=== PATIENT | female | born 1985 | race Caucasian/White ===

== ENCOUNTER 2016-12-15 08:04 | Emergency (ER) | payer OTHER ==
[~2016-12-15] VITALS: Wt 71.0 kg
[~2016-12-15 08:04] MED LIST: CLIN-72 PO; IBUP-1542 PO; IBUP800T25 PO; PREN-39 PO
--- NOTE | 2016-12-15 09:26 | RADRPT ---
PROCEDURE: US Pelvis. CLINICAL INDICATION: pelvic pain TECHNIQUE: Multiple sonographic images of the pelvis were obtained utilizing a transabdominal and endovaginal technique. The images were reviewed on a PACS workstation. COMPARISON: None. FINDINGS: The uterus is normal in size with a normal appearance of the myometrium. The uterus measures 8.5 x 4.1 x 5.2 cm. The endometrial stripe is homogeneous in appearance and has the thickness of 4.2 mm. The ovaries are normal in size and echogenicity. Normal Doppler flow is identified in both ovaries. There are normal follicles in the ovaries. The right ovary measures 3.4 x 2.5 x 2.2 cm. The left ovary measures 3.2 x 1.5 x 2.1 cm. No free fluid is present within the pelvis. RPTAT: AA IMPRESSION: Unremarkable pelvic ultrasound. .Cuong Pena MD, Date Time Electronically viewed and signed by .Cuong Pena MD, MD on 12/15/2016 09:26 .S/
--- NOTE | 2016-12-15 09:29 | ERD ---
ER Documentation Chief Complaint Date/Time DATE: 12/15/16 TIME: 09:29 Chief Complaint PELVIC PAIN X 3 DAYS DENIES PREG HPI This is a 31-year-old female presenting to the emergency department complaining of suprapubic pain for the past 3 days. Patient describes it as a pressure. She denies any dysuria, hematuria, vaginal discharge. She states that she has 1 sexual partner with her . She denies any fevers. ROS All systems reviewed and are negative except as per history of present illness. Medications Home Meds Active Scripts Phenazopyridine Hcl* (Pyridium*) 200 Mg Tab, 200 MG PO TID Y for URINARY PAIN, # 10 TAB Prov:STORM BACH PA-C 12/15/16 Nitrofurantoin Monohyd Macrocr* (Macrobid*) 100 Mg Capsr, 100 MG PO BID for 7 Days, CAP Prov:STORM BACH PA-C 12/15/16 Clindamycin Hcl* (Clindamycin Hcl*) 150 Mg Capsule, 150 MG PO QID, #30 CAP Prov:IZABEL HAGEN DO 11/27/15 Ibuprofen* (Motrin*) 600 Mg Tab, 600 MG PO Q8, #30 TAB Prov:IZABEL HAGEN DO 11/27/15 Ibuprofen* (Motrin*) 800 Mg Tab, 800 MG PO Q6H Y for PAIN AND OR ELEVATED TEMP, #30 TAB Prov:LORRIE MORENO MD 01/30/15 Reported Medications Vits W-Ca,Fe,Fa(<1MG) ( Vitamins) 1 Tab Tablet, 1 TAB PO DAILY 11/28/12 Allergies Allergies: Coded Allergies: No Known Allergy (Unverified , 12/15/16) PMhx/Soc Medical and Surgical Hx: pt denies Medical Hx History of Surgery: Yes (c/section x4) Anesthesia Reaction: No Hx Neurological Disorder: No Hx Respiratory Disorders: No Hx Cardiac Disorders: No Hx Psychiatric Problems: No Hx Miscellaneous Medical Probl: No Hx Alcohol Use: No Hx Substance Use: No Hx Tobacco Use: No Physical Exam Vitals Vital Signs Date Time Temp Pulse Resp B/P Pulse Ox O2 Delivery O2 Flow Rate FiO2 12/15/16 08:23 98.0 81 18 132/71 99 Physical Exam General: well-developed/well-nourished, in no apparent distress, non-toxic appearing HENT: NC/AT Eyes: Conjunctiva normal Neck: Supple Pulm: CTA bilaterally, normal breathing CV: Normal S1S2 GI: Soft, non-distended, normal bowel sounds, TTP on suprapubic region Back: No midline tenderness, no masses, No CVAT Ext: No clubbing, cyanosis, or edema Neuro: Alert and orientated Skin: intact, normal turgor Psych: Normal mood and mentation Results 24 hrs Laboratory Tests Test 12/15/16 08:30 Urine Color YELLOW Urine Clarity CLOUDY Urine pH 5.0 Urine Specific [place] 1.024 Urine Ketones NEGATIVEmg/dL Urine Nitrite NEGATIVEmg/dL Urine Bilirubin NEGATIVEmg/dL Urine Urobilinogen NEGATIVEmg/dL Urine Leukocyte Esterase 3+Bia/ul Urine Microscopic RBC 8/HPF Urine Microscopic WBC 8/HPF Urine Squamous Epithelial Cells FEW/HPF Urine Mucus MANY/HPF Urine Hemoglobin NEGATIVEmg/dL Urine Glucose NEGATIVEmg/dL Urine Total Protein NEGATIVEmg/dl Procedures/MDM MDM: This is a 31-year-old female presents to the ER with urinary tract infection. Low suspicion for pyelonephritis, nephrolithiasis, ovarian torsion due to physical examination and diagnostic testing. Urinalysis was positive for a urinary tract infection with +3 leukocyte esterase and hemoglobin. Patient did not have any CVA tenderness. Urine test is negative.Pelvic ultrasound: Unremarkable pelvic ultrasound. Disposition: Patient is in stable condition and hemodynamically stable for discharge. Prescriptions Macrobid and Pyridium. Have been given to take as directed. Strict precautions were given to return to the ER if not improving as expected or for any worsening signs and symptoms Departure Diagnosis: Primary Impression: UTI (urinary tract infection) Condition: Stable STORM BACH PA-C Dec 15, 2016 09:29
[2016-12-15 10:09] LABS: ADD UMIC YES; UR ASCORBIC ACID NEGATIVE (NEGATIVE); UR BILIRUBIN (Dip) NEGATIVE (NEGATIVE); UR BLOOD (Dip) NEGATIVE (NEGATIVE); UR CLARITY CLOUDY (CLEAR); UR COLOR YELLOW (YELLOW); UR GLUCOSE (Dip) NEGATIVE (NEGATIVE); UR KETONES (Dip) NEGATIVE (NEGATIVE); UR LEUKOCYTE ESTERASE (Dip) 3+ Leu/ul (NEGATIVE); UR MUCUS MANY /HPF (NONE SEEN); UR NITRITE (Dip) NEGATIVE (NEGATIVE); UR RBC 8 /HPF (0-5); UR SPECIFIC GRAVITY (Dip) 1.024 (1.003-1.030); UR SQUAMOUS EPITHELIAL CELL FEW /HPF (FEW); UR TOTAL PROTEIN (Dip) NEGATIVE (NEGATIVE); UR UROBILINOGEN (Dip) NEGATIVE (NEGATIVE)
[2016-12-15] MEDS ORDERED: NITR-58 PO (10:16)
[2016-12-15] MEDS ORDERED: PHEN-538 PO (10:16)
== END 2016-12-15 10:26 | disposition home or self-care (01) ==
LOC: FTE 08:04
DX: N39.0 Urinary tract infection, site not specified (principal)
CPT/HCPCS: 76830; 76856; 81001; Z7502

== ENCOUNTER 2017-06-06 09:37 | Emergency (ER) | END 2017-06-06 14:00 | disposition home or self-care (01) ==

== ENCOUNTER 2017-08-22 08:25 | Emergency (ER) | END 2017-08-22 11:05 | disposition home or self-care (01) ==

== ENCOUNTER 2017-09-01 22:34 | Emergency (ER) | END 2017-09-02 02:01 | disposition home or self-care (01) ==

== ENCOUNTER 2017-09-13 19:20 | Emergency (ER) | END 2017-09-14 01:17 | disposition home or self-care (01) ==

== ENCOUNTER 2017-09-27 | Inpatient (IN) | END 2017-09-30 19:05 | disposition home or self-care (01) | DRG 880 ==

== ENCOUNTER 2017-12-10 14:07 | Emergency (ER) | END 2017-12-10 16:57 | disposition home or self-care (01) ==